=== PATIENT | female | born 1955 | race Caucasian/White ===

== ENCOUNTER 2017-05-25 12:04 | Emergency (ER) | payer MEDICAID ==
[2017-05-25 12:31] VITALS: BP 112/65
--- NOTE | 2017-05-25 13:44 | EDM.PDOC ---
ED HPI GENERAL MEDICAL PROBLEM - General Chief Complaint: Laceration Stated Complaint: FELL NAD HIT HEAD Time Seen by Provider: 05/25/17 13:36 Source of Information: Reports: Patient, Family, RN Notes Reviewed History Limitations: Reports: No Limitations - History of Present Illness INITIAL COMMENTS - FREE TEXT/NARRATIVE: 61-year-old female presents emergency department today with laceration to the back of her scalp this happened when she slipped in the bed and she hit the corner of the bed frame she did not get knocked out she has no nausea vomiting headache or other symptoms bleeding is controlled Headache Pain Score (Numeric/FACES): 10 - Related Data Allergies Allergy/AdvReac Type Severity Reaction Status Date / Time acetaminophen [From Tylenol] Allergy Hives Verified 05/25/17 13:04 hydromorphone [From Dilaudid] Allergy Respiratory Verified 05/25/17 13:04 Depression Penicillins Allergy Hallucinati Verified 05/25/17 13:04 ons Past Medical History HEENT History: Reports: Impaired Vision Cardiovascular History: Reports: Aneurysm Respiratory History: Reports: COPD Genitourinary History: Reports: Chronic Renal Insuffiency 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: Musculoskeletal History: Reports: Fracture - Past Surgical History Cardiovascular Surgical History: Reports: AAA repair GI Surgical History: Reports: Appendectomy, Cholecystectomy Female Surgical History: Reports: Section Musculoskeletal Surgical History: Reports: Joint Replacement Social & Family History - Tobacco Use Smoking Status *Q: Current Every Day Smoker Years of Tobacco use: 50 Packs/Tins Daily: 0.5 - Caffeine Use Caffeine Use: Reports: Coffee - Recreational Drug Use Recreational Drug Use: No ED ROS GENERAL - Review of Systems Review Of Systems: See Below Constitutional: Reports: No Symptoms HEENT: Reports: No Symptoms Respiratory: Reports: No Symptoms Cardiovascular: Reports: No Symptoms GI/Abdominal: Reports: No Symptoms Skin: Reports: Wound ED EXAM, SKIN/RASH Exam: See Below Text/Narrative:: Examination of the scalp she does have a superficial laceration partially into the dermis I cannot separate the wound it is approximately 2 cm in length bleeding is controlled located occipital region Exam Limited By: No Limitations General Appearance: Alert, WD/WN, No Apparent Distress Eye Exam: Bilateral Eye: Normal Inspection Respiratory/Chest: No Respiratory Distress Course - Vital Signs Last Recorded V/S: Last Vital Signs Temp 96.9 F 05/25/17 13:10 Pulse 71 05/25/17 13:10 Resp 15 05/25/17 13:10 BP 112/65 05/25/17 13:10 Pulse Ox 94 L 05/25/17 13:10 Departure - Departure Time of Disposition: 13:43 Disposition: Home, Self-Care 01 Condition: Good Clinical Impression: Laceration of scalp Qualifiers: Encounter type: initial encounter Qualified Code(s): S01.01XA - Laceration without foreign body of scalp, initial encounter - Discharge Information Forms: ED Department Discharge Additional Instructions: Follow head injury guidelines sheet, Please followup with your primary care provider in 2-3 days if not better, please call return to the emergency department with worsening of symptoms. - Assessment/Plan Plan: Assessment Acuity = acute Site and laterality = superficial laceration occipital region scalp Etiology = secondary to trauma Manifestations = none Location of injury = home Lab values = none Plan Tetanus was in 2013, elected not to repair, head injury sheet provided follow- up with primary care as needed Patient was in agreement with the plan all questions were answered, they were instructed to return to the emergency department or call for worsening symptoms. This note was dictated using [employer] voice recognition software please call with any questions.
== END 2017-05-25 13:52 | disposition home or self-care (01) ==
LOC: JP.ED 12:04
DX: S01.01XA Laceration without foreign body of scalp, initial encounter (principal); J44.9 Chronic obstructive pulmonary disease, unspecified; F17.210 Nicotine dependence, cigarettes, uncomplicated; Z90.49 Acquired absence of other specified parts of digestive tract; Z88.0 Allergy status to penicillin; Z88.6 Allergy status to analgesic agent; W18.09XA Striking against other object with subsequent fall, initial encounter
CPT/HCPCS: 99283